=== PATIENT | female | born 1965 | race Caucasian/White ===

== ENCOUNTER 2017-07-24 15:57 | Emergency (ER) | payer OTHER ==
[~2017-07-24] VITALS: Ht 160 cm; Wt 104.5 kg
[2017-07-24] MEDS ORDERED: FERR-89 PO (16:04)
[2017-07-24] MEDS ORDERED: IBUPROFEN 800 MG TABLET PO ONE (18:15)
[2017-07-24 19:33] VITALS: BP 115/62
== END 2017-07-24 19:35 | disposition home or self-care (01) ==
LOC: EMS 16:00
DX: M79.671 Pain in right foot (principal); M79.672 Pain in left foot; R03.0 Elevated blood-pressure reading, without diagnosis of hypertension; Z99.81 Dependence on supplemental oxygen
CPT/HCPCS: 99283